=== PATIENT | female | born 1990 | race Hispanic/Latino ===

== ENCOUNTER 2018-03-17 17:20 | Emergency (ER) | payer OTHER ==
[2016-11-25 16:42] VITALS: BMI 29.9
[2018-03-17 23:29] VITALS: BP 121/56; PULSE 85; RESP 18; TEMP 98.6; O2SAT 100
== END 2018-03-17 19:20 | disposition home or self-care (01) ==
LOC: H.EROB2 17:20
DX: O26.852 Spotting complicating pregnancy, second trimester (principal); Z3A.25 25 weeks gestation of pregnancy

== ENCOUNTER 2018-05-18 12:55 | Emergency (ER) | payer OTHER ==
[2018-05-18 13:19] VITALS: BMI 35.2
--- NOTE | 2018-05-18 16:14 | US ---
Date of service: 05/18/2018 PROCEDURE: Bilateral lower extremity venous duplex Doppler. HISTORY: leg pain - preg COMPARISON: None available. TECHNIQUE: Bilateral common femoral, superficial femoral, popliteal and posterior tibial veins were evaluated. Flow was assessed with color Doppler, compressibility, assessment of phasic flow and augmentation response. FINDINGS: COMMON FEMORAL VEIN: Right CFV: Normal color flow, compressibility and augmentation response. Left CFV: Normal color flow, compressibility and augmentation response. SUPERFICIAL FEMORAL VEIN: Right SFV: Normal color flow, compressibility and augmentation response. Left SFV: Normal color flow, compressibility and augmentation response. POPLITEAL VEIN: Right Popliteal: Normal color flow, compressibility and augmentation response. Left Popliteal: Normal color flow, compressibility and augmentation response. POSTERIOR TIBIAL VEIN: Right PTV: Normal color flow, compressibility and augmentation response. Left PTV: Normal color flow, compressibility and augmentation response. OTHER FINDINGS: None. IMPRESSION: No evidence of deep venous thrombosis.
--- NOTE | 2018-05-18 16:58 | OBDCSUM ---
Datetime: 05/18/2018 16:35 Discharged to, Provider: Home Follow up at, Provider: Dr Meyer Disch Instr Activity: Normal activity Disch Instr Diet: Regular Discharge Time: 05/18/2018 16:40 Follow up in weeks, Provider: as per schedule May Disch Referrals: None Discharge Comment, Provider: Doppler - negative Discharge Diagnosis Prov Other: Leg pain
[2018-05-18 20:58] VITALS: BP 130/77; PULSE 116; RESP 20; TEMP 98.4; O2SAT 90
== END 2018-05-18 16:57 | disposition home or self-care (01) ==
LOC: H.EROB2 12:55
DX: O26.93 Pregnancy related conditions, unspecified, third trimester (principal); M79.605 Pain in left leg; Z87.59 Personal history of other complications of pregnancy, childbirth and the puerperium; Z3A.34 34 weeks gestation of pregnancy

== ENCOUNTER 2018-06-17 06:28 | Inpatient (IN) | payer OTHER ==
[2018-06-17 06:47] VITALS: BMI 38.6
[2018-06-17] MEDS ORDERED: Oxytocin 30 UNIT 30 UNITS/500 ML BAG IV ONE ×2 (07:24→08:00)
[2018-06-17] MEDS ORDERED: OXYTOCIN/0.9 % NS 20 UNIT/1,000 ML BAG IV SCH (07:30)
[2018-06-17] MEDS: Lactated Ringer's 1,000 ML IV ONE ×2 (07:30→08:30)
[2018-06-17] MEDS ORDERED: ceFAZolin IV 2 gm in Dextrose 2 GM/50 ML BAG IVPB SCH (08:00)
[2018-06-17 08:30] LABS: BASO % 0.2 % (0.0-2.0); EOS # 0.1 K/uL (0.0-0.7); EOS % 0.9 % (0.0-4.0); LYMPH # 1.7 K/uL (1.0-4.3); LYMPH % 18.8 % (20.0-40.0); MEAN CELL VOLUME 90.3 fl (81.0-99.0); MEAN CORPUSCULAR HEMOGLOBIN 31.5 pg (27.0-31.0); MEAN CORPUSCULAR HGB CONC 34.8 g/dL (33.0-37.0); MEAN PLATELET VOLUME 9.4 fl (7.2-11.7); MONO # 0.6 K/uL (0.0-0.8); NEUT # 6.7 K/uL (1.8-7.0); NEUT % 73.1 % (50.0-75.0); RBC 3.51 Mil/uL (3.80-5.20); RED CELL DISTRIBUTION WIDTH 14.7 % (11.5-14.5); WHITE BLOOD COUNT 9.2 K/uL (4.8-10.8)
[2018-06-17 08:45] VITALS: O2SAT 100
[2018-06-17] MEDS ORDERED: Lactated Ringer's 1,000 ML IV SCH (08:45)
[2018-06-17] MEDS ORDERED: Morphine 1 mg/ml preservative-free Inj(Duramorph) ONE (09:49)
[2018-06-17] MEDS ORDERED: Phenylephrine 10 mg/ml Inj ONE (09:49)
[2018-06-17] MEDS ORDERED: DiphenhydrAMINE 50 mg/ml Inj IVP PRN (10:37)
[2018-06-17] MEDS ORDERED: Oxycodone/Acetaminophen 5/325 mg Tab PO PRN ×2 (11:38→17:01)
[2018-06-17] MEDS ORDERED: Benzocaine/Menthol SPRAY TOP PRN ×2 (11:38→17:01)
[2018-06-17] MEDS: Lactated Ringer's 1,000 ML IV SCH (18:57)
--- NOTE | 2018-06-18 00:52 | OBADHP ---
Datetime: 06/17/2018 09:15 IP Chief Complaint Other: Scheduled Admit Comment, IP Provider: HPI: 29 year old who presents for her previously scheduled C-sectio n due to a history of a previous . Denies any contractions, bleeding or LOF. Good move ment. was dated by first trimester US with a EDC of 06/24/18. Patient denies any complications during the . History 1 previous due to failed induction of labor secondary to pre-eclampsia diagnosed near te rm PMH Denies PSH Previous Social History Was working at [employer], now unemployed. Denies tobacco, alcohol or drug use during the Medication PNV Allergies NKDA OBJECTIVE See exam section labs unremarkable Assessment/Plan: 29 year old at 39.0 here for repeat scheduled - Reviewed risks/benefits, informed consent signed and patient is in agreement with the plan to pr oceed to surgery - 2g Ancef pre-operatively - No tubal ligation planned Basilia Menon MD OB Fellow Abdomen - PN: Normal Lungs - PN: Normal Heart - PN: Normal HEENT - PN: Normal General - PN: Normal IP Fetus A Comments: Reactive NST FHR - Baseline A Provider: 125 Vital Signs Provider: Reviewed; Within Normal Limits NICHD Variability Prov Fetus A: Moderate 6-25bpm NICHD Accel Fetus A IP Provider: [id number] NICHD Decel Fetus A IP Provider: None IP Adm Impression: Term, intrauterine IP Admit Plan: Admit to unit; Initiate Section protocol Datetime: 05/18/2018 13:45 Extremities - PN: Normal Back - PN: Normal Contraction Comments Provider: none Comments, ACOG Physical Exam: Leg: no swelling; no warmth; not discolored; no Jewels's IP Hx Assessment: The History has been Reviewed and is Current IP Chief Complaint: Other FHR Category Provider Fetus A: Category I EGA AdmitDate IP: 34.5 Datetime: 03/17/2018 18:22 Pelvic Type - PN: Adequate Breast - PN: Not Done Thyroid - PN: Not Done Neurologic - PN: Normal Dilatation, Provider: closed per speculum Genitourinary Exam: Normal DTRs - PN: Not Done
--- NOTE | 2018-06-18 00:55 | OBDS ---
DELIVERY PERSONNEL Delivery Doctor: Archie Meyer MD Tug Master: Catherine Lake RN Anesthesiologist: Jonathan Tello MD Resident: Dr. Jonathan GonzalezOBR MATERNAL INFORMATION Delivery Anesthesia: Spinal Medications in Delivery: Pitocin 30 mu/500 mL NS, Pitocin 20 mu/1000 mL NS Estimated Blood Loss (ml): 800 Placenta Cultured: No Maternal Complications: None RN Comments: Dr. Trotter assist Provider Comments: Repeat low flap transverse section via Pfannenstiel incision. Patient de livered viable with Apgars of 9 and 9 at one and 5 minutes respectively. Normal uterus, normal tubes and ovaries bilaterally. Estimated blood loss 800 mL Fluids 1200 mL lactated Ringer's urine output 200 mL clear urine No complications LABOR SUMMARY EDC: 06/24/2018 00:00 No. Babies in Womb: 1 Attempted: No Labor Anesthesia: None LABOR INFORMATION Reason for Induction: Not Applicable Oxytocin: N/A Group B Beta Strep: Negative Antibiotics # of Doses: 1 Antibiotics Time of Last Dose: 953 Steroids Given: None Reason Steroids Not Administered: Not Applicable MEMBRANES Membranes Rupture Method: Artificial Rupture of Membranes: 07/17/2018 10:18 Length of Rupture (hrs): -719.98 Amniotic Fluid Color: Clear Amniotic Fluid Amount: Moderate Amniotic Fluid Odor: None STAGES OF LABOR Stage 3 hrs: 0 Stage 3 min: 1 CSECTION DELIVERY Primary Indication: Repeat Elective CSection Urgency: Elective CSection Incidence: Repeat Labor: No Labor Elective: Elective CSection Incision: Lower Uterine Transverse Uterine Closure: Single-layer closure BABY A INFORMATION Infant Delivery Date/Time: 06/17/2018 10:19 Method of Delivery: Born in Route : No : N/A Forceps: N/A Vacuum Extraction: N/A Shoulder Dystocia : No SHOULDER DYSTOCIA BABY A Delivery Date/Time: 06/17/2018 10:19 PRESENTATION/POSITION BABY A Presentation: Cephalic Cephalic Presentation: Vertex Breech Presentation: N/A PLACENTA INFORMATION BABY A Placenta Delivery Time : 06/17/2018 10:20 Placenta Method of Delivery: Expressed Placenta Status: Delivered SCORES BABY A Heart Rate 1 min: >100 bpm Resp Effort 1 min: Good Cry Reflex Irritability 1 min: Cough or Sneeze or Pulls Away Muscle Tone 1 min: Active Motion Color 1 min: Body [place], Extremities Blue Resuscitation Effort 1 min: N/A SCORE 1 MIN: 9 Heart Rate 5 min: >100 bpm Resp Effort 5 min: Good Cry Reflex Irritability 5 min: Cough or Sneeze or Pulls Away Muscle Tone 5 min: Active Motion Color 5 min: Body [place], Extremities Blue Resuscitation Effort 5 min: N/A SCORE 5 MIN: 9 INFORMATION BABY A Gestational Age at Delivery: 39.0 Gestational Status: Term Infant Outcome : Liveborn Infant Condition : Stable Sex: Female WEIGHT/LENGTH BABY A Birthweight (gms): 3690 Weight (lb): 8 Weight (oz): 2 CORD INFORMATION BABY A No. Cord Vessels: 3 Nuchal Cord : N/A Cord Blood Taken: Yes Suction: Mouth; Nose
--- NOTE | 2018-06-18 01:01 | OBDS ---
DELIVERY PERSONNEL Delivery Doctor: Archie Meyer MD Supervisor Detasseling Crew: Catherine Lake RN Anesthesiologist: Jonathan Tello MD Resident: Dr. Jonathan GonzalezOBR MATERNAL INFORMATION Delivery Anesthesia: Spinal Medications in Delivery: Pitocin 30 mu/500 mL NS, Pitocin 20 mu/1000 mL NS Estimated Blood Loss (ml): 800 Placenta Cultured: No Maternal Complications: None RN Comments: Dr. Trotter assist Provider Comments: Repeat low flap transverse section via Pfannenstiel incision. Patient de livered viable with Apgars of 9 and 9 at one and 5 minutes respectively. Normal uterus, normal tubes and ovaries bilaterally. Estimated blood loss 800 mL Fluids 1200 mL lactated Ringer's urine output 200 mL clear urine No complications LABOR SUMMARY EDC: 06/24/2018 00:00 EDC: 06/24/2018 00:00 No. Babies in Womb: 1 Attempted: No Labor Anesthesia: None LABOR INFORMATION Reason for Induction: Not Applicable Oxytocin: N/A Group B Beta Strep: Negative Antibiotics # of Doses: 1 Antibiotics Time of Last Dose: 953 Steroids Given: None Reason Steroids Not Administered: Not Applicable MEMBRANES Membranes Rupture Method: Artificial Rupture of Membranes: 07/17/2018 10:18 Length of Rupture (hrs): -719.98 Amniotic Fluid Color: Clear Amniotic Fluid Amount: Moderate Amniotic Fluid Odor: None STAGES OF LABOR Stage 3 hrs: 0 Stage 3 min: 1 CSECTION DELIVERY Primary Indication: Repeat Elective CSection Urgency: Elective CSection Incidence: Repeat Labor: No Labor Elective: Elective CSection Incision: Lower Uterine Transverse Uterine Closure: Single-layer closure BABY A INFORMATION Delivery Date/Time: 06/17/2018 10:19 Method of Delivery: Born in Route : No : N/A Forceps: N/A Vacuum Extraction: N/A Shoulder Dystocia : No SHOULDER DYSTOCIA BABY A Infant Delivery Date/Time: 06/17/2018 10:19 PRESENTATION/POSITION BABY A Presentation: Cephalic Cephalic Presentation: Vertex Breech Presentation: N/A PLACENTA INFORMATION BABY A Placenta Delivery Time : 06/17/2018 10:20 Placenta Method of Delivery: Expressed Placenta Status: Delivered SCORES BABY A Heart Rate 1 min: >100 bpm Resp Effort 1 min: Good Cry Reflex Irritability 1 min: Cough or Sneeze or Pulls Away Muscle Tone 1 min: Active Motion Color 1 min: Body [place], Extremities Blue Resuscitation Effort 1 min: N/A SCORE 1 MIN: 9 Heart Rate 5 min: >100 bpm Resp Effort 5 min: Good Cry Reflex Irritability 5 min: Cough or Sneeze or Pulls Away Muscle Tone 5 min: Active Motion Color 5 min: Body [place], Extremities Blue Resuscitation Effort 5 min: N/A SCORE 5 MIN: 9 INFORMATION BABY A Gestational Age at Delivery: 39.0 Gestational Status: Term Infant Outcome : Liveborn Infant Condition : Stable Infant Sex: Female WEIGHT/LENGTH BABY A Infant Birthweight (gms): 3690 Weight (lb): 8 Infant Weight (oz): 2 CORD INFORMATION BABY A No. Cord Vessels: 3 Nuchal Cord : N/A Cord Blood Taken: Yes Infant Suction: Mouth; Nose
--- NOTE | 2018-06-18 03:22 | OP ---
PROCEDURE DATE: 06/17/2018 PREOPERATIVE DIAGNOSIS: Repeat low-flap transverse section at 39 weeks of gestational age. POSTOPERATIVE DIAGNOSIS: Repeat low-flap transverse section at 39 weeks of gestational age. OPERATION PERFORMED: Repeat low-flap transverse section via Pfannenstiel incision. OPERATIVE FINDINGS: Viable with Apgars of 9 and 9 in one and five minutes respectively, normal uterus, normal tubes and ovaries bilaterally. ESTIMATED BLOOD LOSS: 800 mL. FLUIDS: 1200 mL Lactated Ringer's. URINE OUTPUT: 200 mL of clear urine. COMPLICATIONS: No complications. SURGEON: Carlos Meyer MD BUILDING OPERATOR: Dr. Menon. ANESTHESIOLOGIST: Janes Tello MD ANESTHESIA: Spinal. DESCRIPTION OF PROCEDURE: The patient was taken to the operating room where spinal anesthesia was found to be adequate. The patient was prepped and draped in a normal sterile fashion in the dorsal supine position with leftward tilt. A Pfannenstiel skin incision was made with a scalpel. This was carried down through to the underlying layer of fascia with the scalpel. Midline dissection was made in the fascial layer with the scalpel. The fascial incision was then extended bilaterally sharply with curved Hayes scissors. The fascial layer was from the underlying rectus muscles both bluntly and sharply with curved Hayes scissors. The rectus muscles were at the midline. The peritoneum was identified, tented up with Roseann clamp x2, and entered sharply with Metzenbaum scissors. This peritoneal incision was then extended superiorly and inferiorly with good visualization of the urinary bladder. Bladder blade was inserted into the abdomen. The vesicouterine peritoneum was then dissected off the anterior surface of the uterus. The bladder flap was created digitally. The [place] retractor was placed over the urinary bladder. The uterus was incised with the scalpel. The uterine incision was extended bilaterally bluntly. The 's head was delivered atraumatically. Nose and mouth were suctioned with bulb suction. The remainder of the infant was delivered without complication. The cord was clamped and cut. The was handed off to awaiting pediatricians. The placenta was removed manually. The uterus was cleared of all clots and debris. The uterine incision was repaired with 0 Vicryl in a running, locked fashion. The second layer of the same suture was used to imbricate the first and to obtain excellent hemostasis. Re-inspection of the uterine incision proved excellent hemostasis. The abdomen and pelvis were irrigated with copious amounts of warm normal saline. Re-inspection of the uterine incision proved excellent hemostasis. All instruments were removed from the patient. The peritoneal layer was closed with a running stitch of 2-0 chromic. The rectus muscles were reapproximated with a running stitch of 2-0 chromic. The fascial layer was closed with a running stitch of 0 Vicryl. The subcutaneous tissue was closed with interrupted sutures of 3-0 plain. The skin was closed with a 3-0 Vicryl and a subcutaneous stitch. The patient tolerated the procedure well. All sponge, lap, and needle counts were correct x2. The patient was given 2 g of Ancef just prior to beginning of the procedure. There were no complications. The patient was taken to the recovery room in awake and stable condition. Carlos Meyer MD
[2018-06-18] MEDS: Lactated Ringer's 1,000 ML IV SCH (03:35)
[2018-06-18 06:38] LABS: HEMOGLOBIN 8.9 g/dL (12.0-16.0); MEAN CELL VOLUME 91.3 fl (81.0-99.0); RBC 2.87 Mil/uL (3.80-5.20); RED CELL DISTRIBUTION WIDTH 15.2 % (11.5-14.5)
--- NOTE | 2018-06-18 08:53 | OBPPN ---
Datetime: 06/18/2018 08:50 PP Pain Prov: Within normal limits PP Nausea Prov: Denies PP Flatus Prov: Yes PP Breasts Prov: Not Done PP Heart Prov: Normal PP Lungs Prov: Normal PP Abdomen/Uterus Prov: Normal PP Lochia Prov: Not Done PP Vulva/Perineum Prov: Not Done PP CVA Tenderness Prov: Normal PP Extremities Prov: Normal PP C/S Incision Prov: Normal PP Impression Prov: Normal progression PP Plan Prov: Continue present management PP Progress Note Prov: A should doing well ambulating tolerating diet pain well-controlled Vital signs stable afebrile Uterus firm below the umbilicus Incision clean dry and intact Extremities no Homans Status post operative delivery postop day 1 Ambulate, analgesia, regular diet
[2018-06-18] MEDS ORDERED: Multivitamin With Minerals Tab PO SCH (09:00)
[2018-06-18] MEDS: Multivitamin With Minerals Tab PO SCH (09:10)
[2018-06-18] MEDS ORDERED: Pneumococcal 23-Valent Vaccine IM ONE (12:53)
[2018-06-18] MEDS ORDERED: Influenza Vaccine (5 YR UP)/PF 60 MCG/0.5 ML SYR IM ONE (14:00)
[2018-06-19] MEDS: Multivitamin With Minerals Tab PO SCH (08:18)
[2018-06-20] MEDS: Multivitamin With Minerals Tab PO SCH (09:24)
--- NOTE | 2018-06-20 11:05 | OBPPN ---
Datetime: 06/20/2018 11:03 PP Pain Prov: Within normal limits PP Nausea Prov: Denies PP Flatus Prov: Yes PP Breasts Prov: Normal PP Heart Prov: Normal PP Lungs Prov: Normal PP Abdomen/Uterus Prov: Normal PP Lochia Prov: Normal PP Vulva/Perineum Prov: Normal PP CVA Tenderness Prov: Normal PP Extremities Prov: Normal PP Comments Phys Exam Prov: Abd: Soft, NT, BS- present UT- Firm Incision: Clean and dry PP Impression Prov: Normal progression PP Plan Prov: Discharge Vital Signs Provider PP: Reviewed Datetime: 06/19/2018 11:00 PP Progress Note Prov: S/P Repeat C/S, POD #2 Clinically Stable. Plan: Continue care
--- NOTE | 2018-06-20 11:07 | OBDCSUM ---
Datetime: 06/20/2018 11:05 Discharged to, Provider: Home Follow up at, Provider: OB Disch Instr Activity: Normal activity Disch Instr Diet: Regular Discharge Instructions, Provider: Routine instructions given Discharge Diagnosis, Provider: Term Delivered Discharge Time: 06/20/2018 11:05 Follow up in weeks, Provider: 2 weeks Disch Referrals: None Contraception discussed, Prov: Yes Discharge Comment, Provider: S/P Repeat C/S, Clinically Stable Discharge Diagnosis Prov Other: S/P Repeat C/S, Clinically Stable
--- NOTE | 2018-06-20 11:07 | OBPPN ---
Datetime: 06/20/2018 11:03 PP Progress Note Prov: S/P Repeat C/S, POD#3 Clinically stable. Plan: D/C Home
[2018-06-20 19:13] VITALS: BP 137/81; PULSE 103; RESP 20; TEMP 98.4
== END 2018-06-20 12:15 | disposition home or self-care (01) | DRG 371 ==
LOC: H.L&D 07:45 → H.OB/GYN 14:57
PROVIDERS: ADMIT Obstetrics & Gynecology; ATTEND Obstetrics & Gynecology
PROC: 10D00Z1 Extraction of Products of Conception, Low, Open Approach (ICD-10-PCS; principal; 2018-06-17)
PROC: 3E0234Z Introduction of Serum, Toxoid and Vaccine into Muscle, Percutaneous Approach (ICD-10-PCS; 2018-06-18)
DX: O34.211 Maternal care for low transverse scar from previous cesarean delivery (principal); Z37.0 Single live birth; Z3A.39 39 weeks gestation of pregnancy; Z23 Encounter for immunization